=== PATIENT | female | born 1985 | race Hispanic/Latino ===

== ENCOUNTER → 2024-04-14 | Outpatient (CLI) | payer MEDICAID ==
--- NOTE | 2024-04-14 10:16 | EKG ---
[facility] Test Date: 2024-04-14 Test Time: 10:42:12 Pat Name: JOSE GORDILLO Department: LAB Room: Gender: F [employer]: [id number] : 1985 Requested By: BRITTNEY LARA Order Number: [id number] Reading MD: Reji Ramirez Measurements Intervals [place] Rate: 57 P: 29 TN: 170 QRS: 50 QRSD: 83 T: 71 QT: 428 QTc: 416 Interpretive Statements Sinus rhythm No previous ECG available for comparison Electronically Signed On 04-14-2024 17:09:08 ECONOMIC GEOGRAPHER by Reji Ramirez Please click the below link to view image of tracing.
[2024-04-14 10:33] LABS: BASOPHILS # (AUTO) 0.04 K/uL (0.00-0.20); BASOPHILS % (AUTO) 0.4 % (0.0-5.0); EOSINOPHILS # (AUTO) 0.17 K/uL (0.00-0.70); EOSINOPHILS % (AUTO) 1.9 % (0.0-8.0); IMMATURE GRANULOCYTE ABSOLUTE 0.03 K/uL (0-1); LYMPHOCYTES # (AUTO) 2.6 K/uL (1.0-4.8); LYMPHOCYTES % (AUTO) 28.2 % (21.0-51.0); MEAN CORPUSCULAR HEMOGLOBIN 29.5 pg (27.0-33.0); MEAN CORPUSCULAR HGB CONC 33.7 g/dL (32.0-36.0); MEAN CORPUSCULAR VOLUME 87.6 fL (79-99); MONOCYTES # (AUTO) 0.4 K/uL (0.1-1.0); MONOCYTES % (AUTO) 4.7 % (3.0-13.0); NEUTROPHILS # (AUTO) 5.9 K/uL (1.8-7.7); NEUTROPHILS % (AUTO) 64.5 % (40.0-77.0); PLATELET COUNT (AUTO) 314 K/uL (130-400); RED BLOOD CELL COUNT(AUTO) 5.25 MIL/uL (4.00-5.50); RED CELL DISTRIBUTION WIDTH 12.7 % (11.0-15.5); WHITE BLOOD COUNT (AUTO) 9.1 K/uL (4.8-10.8)
[2024-04-14 10:48] LABS: HEMOGLOBIN A1C 6.4 % (4.0-6.0)
[2024-04-14 11:08] LABS: ALBUMIN 3.5 g/dL (3.5-5.0); BILIRUBIN,TOTAL 0.2 mg/dL (0.2-1.0); CREATININE 0.9 mg/dL (0.5-1.0); POTASSIUM 3.9 mmol/L (3.5-5.1); T4 (THYROXINE) 8.6 ug/dL (4.7-13.3); THYROID STIMULATING HORMONE 3.79 uIU/mL (0.36-3.74)
--- NOTE | 2024-04-14 14:43 | HMCIMG ---
CHEST 1VW HISTORY: Preop COMPARISON: None FINDINGS: A frontal projection of the chest was obtained. No acute pulmonary infiltrates is seen. The heart is normal in size. Prominent interstitial markings are seen. No evidence of aortic calcification is seen. IMPRESSION: 1. No acute pulmonary infiltrate is seen.
== END | disposition home or self-care (01) ==
LOC: LAB 08:57
PROVIDERS: ATTEND Surgery
DX: Z01.818 Encounter for other preprocedural examination (principal); K21.9 Gastro-esophageal reflux disease without esophagitis; M19.91 Primary osteoarthritis, unspecified site; E66.01 Morbid (severe) obesity due to excess calories; Z68.41 Body mass index [BMI] 40.0-44.9, adult
CPT/HCPCS: 36415; 71045; 80053; 80061; 82306; 82607; 82746; 83036; 83540; 83735; 84207; 84425; 84436; 84443; 84446; 84481; 84590; 84630; 85025; 93005

== ENCOUNTER → 2024-04-14 | Outpatient (CLI) | payer OTHER ==
[~2024-04-14] VITALS: Ht 27.9 cm; Wt 98.0 kg
--- NOTE | 2024-04-14 14:04 | NUR ---
BARIATRIC INITIAL ASSESSMENT VISIT 1 OF 6 Wt: 216 lbs DOS: 04/14/24 present during visit. Pt seeking bariatric procedure to aid in wt loss and improve medical health conditions. Pt reported she heard of procedure from friend, has struggled with her wt all her adult life, has tried to lose wt via FAD diets, exercise, pills, highest adult wt of 216 lbs, both sides struggle with wt, has 3 kids, no picky eaters, gets groceries w/ curbside, hx of hysterectomy, does not drink water during the day, eats 1 meal per day, no snacks, drinks 8 sodas per day, no sweets or salty snacks per day, fast food 3x per month, takes 20-25 min, tends to not eat when stressed, stopped anti-depressant medication '23, used to be in therapy, does not work, does not travel, does most of the cooking, has the means to purchase healthy food with no issue, sleep varies, sleeps 10 hrs per day, has knee pain, back pain, ankle pain, is able to do seated exercises, goal wt of 145 lb in [address] conducted 24 hr recall: Breakfast: skipped Lunch: skipped Dinner: steak + caesar salad Snack(s): n/a RD reviewed portion sizes with pt, reviewed healthy plate, informed Pt of importance of protein intake, demonstrated DM chart, reviewed carbohydrate sources and carbohydrate counting, provided and an estimate for estimated carbohydrate intake per day. Pt completed wt management program diet readiness questionnaire. Results are as follows: Section 1: Goals and Attitudes. Score of 20.You may be close to being ready to begin a program but should think about ways to boost your preparedness before you begin. Sections 2: Hunger and Eating cues. Score 7.You may have a moderate tendency to eat just because food is available. Dieting may be easier for you if you try to resist external cues and eat only when you are physically hungry. Section 3: Control over Eating. Score 9.You do not seem to let unplanned eating disrupt your program. This is a flexible, balanced approach. Section 4: Melanie Eating and Purging: Score 3.Pay attention to these eating patterns. Should they arise more frequently, get professional help. Section 5: Emotional Eatin. You do not appear to let your emotions affect your eating. Section 6: Exercise Patterns and Attitudes: Score 7.You are probably not exercising as regularly as you should. Determine whether your attitudes about exercise are blocking your way, then change what you must and put on those walking shoes. Goals Established: -MVI QD -decrease carbonation -small snack for dinner Pt in agreement with goals and is aware she will need to cut carbonated beverages, sweets and caffeine prior to surgery. Recommended for Pt to complete visits with Dietitian to prepare for bariatric procedure. Thank you for this visit. Addendum: 04/14/24 at [address] Amended: Links added.
== END | disposition home or self-care (01) ==
LOC: DTH 08:55
PROVIDERS: ATTEND Surgery
DX: E66.01 Morbid (severe) obesity due to excess calories (principal); G47.33 Obstructive sleep apnea (adult) (pediatric); K21.9 Gastro-esophageal reflux disease without esophagitis; M19.91 Primary osteoarthritis, unspecified site; Z71.3 Dietary counseling and surveillance; Z68.41 Body mass index [BMI] 40.0-44.9, adult
CPT/HCPCS: 97802

== ENCOUNTER → 2024-05-05 | Outpatient (CLI) | payer OTHER ==
--- NOTE | 2024-05-05 14:01 | NUR ---
BARIATRIC FOLLOW UP NOTE VISIT 2 OF 6 Wt: 221.6 LBS DOS: 05/05/24 Upon follow up visit, pt presents with a ~5 lb wt gain. Pt reported she was not surprised towards wt gain, requested telehealth per transportation issues, has a child that requires care due to down syndrome, with MVI QD, has appointment with PCP, is on vit. D prescription, recently got dx w/ pre-diabetes due to A1C 6.4, did not get medication, reduced soda consumption, water training, was busy with appointments yesterday. RD conducted 24 hr food recall. Breakfast: skipped Lunch: skipped Dinner: fajita + cheese + beans + squirt RD reviewed simple CHO and complex CHO intake, encouraged pt to decrease soft drink (even sugar free) consumption secondary to carbonation and caffeine, pt verbalized understanding. RD and pt established goals for next month: -continue MVI QD -no skipping meals -walking 5 x per week for 45 mins Thank you for this visit. Addendum: 05/05/24 at [address] Amended: Links added.
== END | disposition home or self-care (01) ==
LOC: DTH 12:43 → EDUNIT# 05-06 14:00
PROVIDERS: ATTEND Surgery
DX: G47.33 Obstructive sleep apnea (adult) (pediatric) (principal); E66.01 Morbid (severe) obesity due to excess calories; M19.90 Unspecified osteoarthritis, unspecified site; K21.9 Gastro-esophageal reflux disease without esophagitis; Z68.41 Body mass index [BMI] 40.0-44.9, adult; Z71.3 Dietary counseling and surveillance
CPT/HCPCS: 97803

== ENCOUNTER → 2024-05-26 | Outpatient (CLI) | payer OTHER ==
--- NOTE | 2024-05-26 14:00 | NUR ---
BARIATRIC FOLLOW UP NOTE VISIT 3 OF 6 Wt: 219 LBS DOS: 05/26/24 Visit via telehealth per Pt's request. Upon follow up visit, pt presents with a 2 lb wt loss. 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 RD conducted 24 hr food recall. Breakfast: skipped Lunch: 3 flautas + juice Dinner: skipped RD reviewed meal prepping, e-mailed nutrition education regarding meal prepping, encouraged Pt to not skip meals, encouraged Pt to incorporate protein supplements qd, encouraged pt to decrease soft drink (even sugar free) consumption secondary to carbonation and caffeine, pt verbalized understanding. RD and pt established goals for next month: -continue MVI QD -protein supplement QD -walk for 10 min QD Thank you for this visit Addendum: 05/26/24 at [address] Amended: Links added.
== END | disposition home or self-care (01) ==
LOC: DTH 13:45 → EDUNIT# 05-27 14:00
PROVIDERS: ATTEND Surgery
DX: E66.01 Morbid (severe) obesity due to excess calories (principal); G47.33 Obstructive sleep apnea (adult) (pediatric); M19.91 Primary osteoarthritis, unspecified site; K21.9 Gastro-esophageal reflux disease without esophagitis; Z68.41 Body mass index [BMI] 40.0-44.9, adult
CPT/HCPCS: 97803

== ENCOUNTER → 2024-06-25 | Outpatient (CLI) | payer OTHER ==
--- NOTE | 2024-06-25 14:50 | NUR ---
BARIATRIC FOLLOW UP NOTE VISIT 4 OF 6 Wt: 219 LBS DOS: 06/25/24 Visit via telehealth. Upon follow up visit, pt presents with no recent wts. Pt reported no recent wts, vit. D prescription, zinc QD, is getting the sleeve, walking 3 x per week 30 mins, no protein shakes, not able to purchase certain supplements due to financial strain, reduced soda. RD conducted 24 hr food recall. Breakfast: banana + yogurt + granola + water Lunch: skipped Dinner: pasta+ tomato sauce + salad+ 2 squirts + water RD reviewed importance of protein and calcium, reviewed importance MVI QD, encouraged pt to decrease soft drink (even sugar free) consumption secondary to carbonation and caffeine, pt verbalized understanding. RD and pt established goals for next month: -MVI QD -protein shake QD -no skipping meals Thank you for this visit Addendum: 06/25/24 at [address] Amended: Links added.
== END | disposition home or self-care (01) ==
LOC: DTH 14:39 → EDUNIT# 07-01 14:00
PROVIDERS: ATTEND Surgery
DX: E66.01 Morbid (severe) obesity due to excess calories (principal); G47.33 Obstructive sleep apnea (adult) (pediatric); M19.91 Primary osteoarthritis, unspecified site; K21.9 Gastro-esophageal reflux disease without esophagitis; Z68.41 Body mass index [BMI] 40.0-44.9, adult; Z71.3 Dietary counseling and surveillance
CPT/HCPCS: 97803

== ENCOUNTER → 2024-07-28 | Outpatient (CLI) | payer OTHER ==
--- NOTE | 2024-07-28 11:59 | NUR ---
BARIATRIC FOLLOW UP NOTE VISIT Wt: 216 LBS DOS: 07/28/24 Visit via telehealth per Pt's preference. RD e-mailed nutrition education forms. Upon follow up visit, pt presents with a 2 lb wt loss. Pt reported she is not sure if she can come in person for last visit. Pt reported she got weighed 2 days ago, expected wt loss, on vit. D prescription, MVI QD, cut off carbonation, no protein shakes, walking 3x per week for ~30 mins. Pt reported she is not sure if she will come in person for the last visit. RD conducted 24 hr food recall. Breakfast: eggs+ banana + milk Lunch: chicken + salad + unsweet iced tea Dinner: nuts+ juice RD reviewed fiber requirements, reviewed pro and pre biotics, reviewed high fiber products, encouraged pt to decrease soft drink (even sugar free) consumption secondary to carbonation and caffeine, pt verbalized understanding. RD and pt established goals for next month: -protein shake QD -continue vit. D + MVI -walking 3x per week for 35 min Thank you for this visit Addendum: 07/28/24 at [address] Amended: Links added.
== END | disposition home or self-care (01) ==
LOC: DTH 11:49 → EDUNIT# 07-29 14:00
PROVIDERS: ATTEND Surgery
DX: E66.01 Morbid (severe) obesity due to excess calories (principal); G47.33 Obstructive sleep apnea (adult) (pediatric); M19.91 Primary osteoarthritis, unspecified site; K21.9 Gastro-esophageal reflux disease without esophagitis; Z71.3 Dietary counseling and surveillance; Z68.41 Body mass index [BMI] 40.0-44.9, adult
CPT/HCPCS: 97803